=== PATIENT | male | born 1970 | race Caucasian/White ===

== ENCOUNTER → 2016-11-16 | Outpatient (CLI) | payer OTHER ==
--- NOTE | 2016-11-16 18:35 | MR ---
EXAMINATION TYPE: MR knee LT wo con DATE OF EXAM: 11/16/2016 COMPARISON: NONE HISTORY: Pain Left Knee with some swelling, x3 weeks TECHNIQUE: Multiplanar, multisequence images of the knee is performed without IV contrast. FINDINGS: MEDIAL MENISCUS: Anterior and posterior horns are intact without tear. LATERAL MENISCUS: Anterior horn is intact without tear. There is a lobulated signal posterior horn of medial meniscus extends to superior articular surface on sagittal image 24 consistent with full-thic kness meniscal tear, linear extension to inferior articular surface felt present on sagittal image 25 . CRUCIATE LIGAMENTS: The posterior cruciate ligaments is intact and unremarkable. Anterior cruciate li gament is completely torn from proximal attachment with small residual lobulated ligament noted on sa gittal image 16. COLLATERAL LIGAMENTS: The medial collateral ligament and lateral collateral ligament complex are inta ct. Mild increased fluid signal surrounds medial collateral ligament. EXTENSOR MECHANISM: Visualized quadriceps and patellar tendons are intact. EFFUSION: No significant suprapatellar joint effusion. POPLITEAL CYST: No popliteal/collins cyst. TRICOMPARTMENT SPACES: There is mild tricompartment joint space loss. No significant spurring is seen . CARTILAGE: There is focal cartilaginous defect along posterior patellar pole centrally superiorly to mid segments seen best on axial image 18 and sagittal image 20. There is adjacent cystic change in th e posterior patellar pole. Findings are consistent with focal full-thickness chondromalacia patella. Articular cartilage medial and lateral tibial femoral compartments is fairly well-maintained. BONE MARROW SIGNAL: As above. Heterogeneity consistent with red marrow reconversion is also present. OTHER: No additional significant abnormality is appreciated. IMPRESSION: 1. Complete ACL tear. 2. Complex full-thickness tear posterior horn of medial meniscus. 3. Mild MCL sprain. 4. Background mild tricompartment degenerative changes with full-thickness chondromalacia patella not ed along superior posterior patella.
== END | disposition home or self-care (01) ==
LOC: RADMRIMAIN 17:44
PROVIDERS: ATTEND Family Medicine
DX: S83.412A Sprain of medial collateral ligament of left knee, initial encounter (principal); S83.512A Sprain of anterior cruciate ligament of left knee, initial encounter; S83.242A Other tear of medial meniscus, current injury, left knee, initial encounter; M17.11 Unilateral primary osteoarthritis, right knee

== ENCOUNTER 2016-12-25 10:50 | Day surgery (SDC) | payer OTHER ==
[2016-12-18 09:03] VITALS: BMI 25.8
[~2016-12-25 10:50] MED LIST: DEXAMETHASONE SOD PHOSPHATE 10 MG/ML 1 ML VIAL IV ONE; HYDROmorphone 1 MG/ML 1 ML SYRINGE IVP PRN; LACTATED RINGERS 1,000 ML IV SCH; MIDAZOLAM 2 MG/2 ML VIAL IV PRN; ONDANSETRON 4 MG/2 ML VIAL IVP ONE; Pre Op ABX Message 1 EACH MISC MISCELLANE ONE; SCOPOLAMINE 1.5MG/72HR PATCH TRANSDERM ONE
[2016-12-25] MEDS ORDERED: LIDOCAINE 1% 20 ML VIAL (10MG/ML) FOR IV START INTRADERMA ONE (11:34)
[2016-12-25] MEDS ORDERED: HYDROmorphone (PF) 1 MG/ML ONE (13:13)
[2016-12-25] MEDS ORDERED: PROPOFOL 10 MG/ML 20 ML VIAL IV ONE (13:13)
[2016-12-25] MEDS ORDERED: SUCCINYLCHOLINE CHLORIDE 100 MG/5 ML SYR IV ONE (13:13)
[2016-12-25] MEDS ORDERED: fentaNYL (PF) 50 MCG/ML 2 ML AMP ONE (13:13)
[2016-12-25] MEDS ORDERED: KETOROLAC 30 MG/ML 1 ML VIAL ONE (13:13)
[2016-12-25] MEDS ORDERED: MIDAZOLAM 2 MG/2 ML VIAL ONE (13:13)
[2016-12-25] MEDS ORDERED: SODIUM CHLORIDE 0.9% 50 ML with ceFAZolin 2,000 MG IV ONE ×2 (13:17)
[2016-12-25] MEDS ORDERED: ceFAZolin 1,000 MG in SODIUM CHLORIDE 0.9% 1,000 ML IRRIGATION ONE (14:18)
[2016-12-25] MEDS ORDERED: ceFAZolin 1,000 MG in SODIUM CHLORIDE 0.9% 500 ML IRRIGATION ONE (14:20)
[2016-12-25] MEDS ORDERED: LACTATED RINGERS 1,000 ML IV ONE (14:35)
[2016-12-25] MEDS ORDERED: ROPIVACAINE 246.25 MG, EPINEPHrine 0.5 MG, KETOROLAC 30 MG, cloNIDine HCL/PF 80 MCG, WA... MISCELLANE ONE ×5 (15:15)
[2016-12-25 15:53] VITALS: TEMP 97.1
--- NOTE | 2016-12-25 16:12 | P.OP ---
Date of Procedure: 12/25/16 Procedure(s) Performed: ACL reconstruction with allograft anterior tibialis. Graftlink procedure. 9.5 mm femoral and 10.0 mm tibial. partial medial meniscectomy 30%. Stellate bucket handle tear in white-white zone. No significant lateral meniscus tear. No significant arthritis of any compartment. PREOPERATIVE DIAGNOSES: 1. Left knee anterior cruciate ligament tear; 2. Posterior horn medial meniscus tear, stellate 3. Lateral meniscus tear POSTOPERATIVE DIAGNOSES: 1. Left knee anterior cruciate ligament tear; 2. Posterior horn medial meniscus tear, stellate 3. No evidence of lateral meniscus tear PROCEDURES PERFORMED: 1. Left knee arthroscopically-assisted anterior cruciate ligament reconstruction with soft tissue allograft 2. Left knee arthroscopic partial medial meniscectomy, 30% ANESTHESIA: data technician: None COMPLICATIONS: None ESTIMATED BLOOD LOSS: Less than 20 cc TOURNIQUET: 75 minutes DISPOSITION: To post-anesthesia care unit INDICATIONS: Kavon is a 46-year-old male with a history of left knee ACL tear and lateral and medial meniscus tears. We have discussed different approaches to ACL reconstruction and the decision is for soft tissue allograft reconstruction with possible meniscal repair versus debridement. I have explained the details of this surgery thoroughly and also explained the potential risks and complications, including the relative risks of graft failure. Other risks are inclusive of, but not limited to: bleeding, infection, scarring, discomfort, blood vessel and nerve damage, stiffness, weakness, need for further surgery, failure to relieve symptoms, persistence or worsening of problems, , and other risks. The patient and parents are aware of these risks and agree to proceed with surgery. The consent form has been signed. PROCEDURE: After appropriate consent was obtained, the patient was taken to the operating room and placed supine on the operating table. General anesthesia was initiated. The knee was examined under anesthesia. Medial collateral, lateral collateral and posterior cruciate ligaments were all intact. There was positive pivot shift of 2+ and 4mm anterior translation with both Lamar and anterior drawer. Full range of motion was noted without crepitus. No effusion or soft tissue swelling was noted. Prepping and draping of the left knee was performed in the usual sterile fashion using ChloraPrep. Care was taken that all pressure points were adequately padded. Leg booker and pneumotourniquet were used. Time-out was called [facility] to [facility] standards, confirming patient identity, surgical procedure, side, and antibiotic administration. Graft preparation took place on the Arthrex graft preparation station. Measurement and preparation of the graft took place uneventfully. The graft was trimmed down to measure approximately 9-10 mm diameter and 68-72 mm length quadrupled graft. 3 loose type suture ligations were performed using #2 FiberWire to secure the graft. The graft was inserted onto the Arthrex ACL tightrope RT on one side, and the ABS sutures on the other. These devices were then attached to the adjustable sliding units on the prep station. The graft was then set to 20 pounds of tension on the graft prep board and covered with a sterile saline soaked gauze pad. During the preparation of the graft, arthroscopy commenced. The surgical portals were placed directly next to the patellar tendon medially and laterally. Camera and instruments were carefully inserted into the knee and arthroscopy was performed. The patellofemoral joint was normal. Hyaline cartilage was normal. No loose bodies in the medial or lateral gutters, quad tendon normal. No plica. Lateral compartment showed normal hyaline cartilage without defect. Meniscus was normal to visualization and probing. No loose bodies were seen within the lateral compartment. Medial compartment was then examined. Medial hyaline cartilage of the femur and tibia were normal. Medial meniscus showed a degenerative posterior horn meniscus tear which was a bucket-handle tear in the white white zone with an unstable appearance. The displaceable fragment of meniscus was poor tissue quality. This was determined to be unrepairable. Approximately 30 % of the meniscus was resected using a shaver and basket forceps. Meniscal remnant was probed and found to be stable. The notch of the knee was then inspected. The patient had a complete tear of the ACL at the femoral attachment with a small Cyclops lesion. The remnant was debrided away with care to avoid injuring the PCL. The notch in this patient was somewhat narrow, and so it was expanded in the lateral direction with a jenny. Only 3 mm of bone was resected from the lateral portion of the notch, just enough to get the guide in. The soft tissue on the lateral side of the notch was cleared as necessary using a shaver. Next, the femoral socket was created using the Arthrex flip cutter guide. The guide was adjusted through the anterolateral portal after careful measurement of the anterior to posterior condylar distance on the lateral notch. A spot approximately between 40 and 50% of this length was chosen and the guide was moved superiorly only as much as to allow for a 2.5 mm back wall. Incision was created on the lateral side of the thigh over the IT band and the guide was placed against the bone. Guide position was adjusted so that there was 20 of anterior elevation in the coronal plane of the femur and 60 in the sagittal plane. Drilling was then performed using the flip cutter drill pin into the knee at the appropriate location. Once the pin position was noted to be satisfactory, the guide was removed and the drill sleeve was tapped into the bone using a mallet. The flip cutter was then deployed and retro-drilling was performed to create a femoral socket of approximately 25 mm. Debris was suctioned out using a shaver. Passing suture was then inserted into the knee joint and carried out through the anteromedial portal. The tibial tunnel was created by the following steps. The retro-cutter aiming guide for the tunnel was placed into the anteromedial portal and onto the cleared central footprint of the blackfeet ACL. The guide cylinder was placed securely on the tibial cortex. The tibial bone length was measured. The retro- cutter guide pin was then inserted into the tibia to emerge at the mid- posterior aspect of the blackfeet ACL footprint, approximately 5 mm from the PCL and just anterior to the posterior border of the anterior horn of the lateral meniscus. The pin was noted to be in excellent position. The retro-cutter was then deployed and reverse drilling was performed creating a tibial socket approximately 30 mm in length. No fracture was noted. The intraarticular debris was removed using a shaver. Graft passing suture was placed. The femoral portion of the GraftLink construct was then inserted into the knee joint, guided by the passing suture. The Endobutton was carried through the femoral cortex and flipped, engaging the cortex securely. Approximately 10 mm or so of the graft was then placed into the femoral socket, using the sutures of the Endobutton. In similar fashion, the graft passing suture was placed into the loop and brought out through the tibial tunnel. This brought the tibial ABS sutures along with it. Approximately 20 mm of graft was placed within the tibial tunnel at which point the adjustable button for the tibia was placed on the sutures. The femoral portion of the graft was completely deployed at this point and bottomed out nicely. The adjustable button was confirmed to be on the cortex of the tibia without interposed soft tissue and preliminary tensioning was performed at that point in full extension. No graft impingement was noted. The knee was then taken through range of motion cycling 10 times. There was no significant motion of the graft detected and the femoral and tibial fixation was noted to be solid. Further tightening of the sutures was performed in extension from the tibial side and the knee was cycled 10 more times with final tightening of the sutures at that point. Sutures were then tied together over the button. Knee was then taken through range of motion which was noted to be full. No graft impingement was noted at the roof or sides of the notch. Fluid was removed from the knee and testing was performed. Anterior drawer 0 mm and Lamar 0 mm. Negative pivot shift. Tourniquet was deflated. Hemostasis was obtained using cautery and pressure. Graft passing sutures were removed or cut as necessary. Thorough irrigation using antibiotic solution was performed, and portals were closed with 4-0 Monocryl suture. Posterior medial incision for hamstring harvest was closed with 3-0 Vicryl suture in the subcutaneous tissue, followed by 4-0 Monocryl suture in running subcuticular fashion for the skin, followed by Dermabond. Tibial incision was closed with 4-0 Monocryl for the skin. Steri strips were applied. Sterile dressing and light compressive dressing was applied using Webril and EDNA wrap. Knee immobilizer was applied. Patient tolerated the procedure well and taken to recovery room in stable condition. Sponge and needle counts were correct.
[2016-12-25 17:02] VITALS: RESP 18
[2016-12-25] MEDS ORDERED: HYDROcodone/APAP 7.5-325MG 1 EACH TAB PO ONE (17:15)
[2016-12-25 18:42] VITALS: BP 106/67; PULSE 76
--- NOTE | 2016-12-30 09:39 | CDI ---
Documentation Clarification OP Dear Dr. Hammond, Please provide clarification regarding the laterality of the procedure performed. Both History and Physical reports state that the injury was to the left knee. The Procedure Note is stating procedure performed on the right knee. PLEASE RESPOND TO THIS QUERY BY DICTATING AN ADDENDUM TO EITHER YOUR PROCEDURE NOTE OR A NEW HISTORY AND PHYSICAL. Thank you for your assistance, BREEZY Keenan If you have any questions, please contact Personalization Specialist, Roro Kwon at [facility]
--- NOTE | 2017-01-06 06:09 | CDI ---
Dear Dr. Hammond, Please provide clarification regarding the laterality of the procedure performed. Both History and Physical reports and surgical profile state that the injury was to the left knee. The Procedure Note is stating procedure performed on the right knee. PLEASE RESPOND TO THIS QUERY BY DICTATING AN ADDENDUM TO EITHER YOUR PROCEDURE NOTE OR A NEW HISTORY AND PHYSICAL. Thank you for your assistance, BREEZY Keenan If you have any questions, please contact Kinder Teacher, Roro Kwon at [facility]
== END 2016-12-25 19:00 | disposition home or self-care (01) ==
LOC: OR 10:50
PROVIDERS: ATTEND Orthopaedic Surgery
DX: S83.512A Sprain of anterior cruciate ligament of left knee, initial encounter (principal); S83.242A Other tear of medial meniscus, current injury, left knee, initial encounter; Y93.64 Activity, baseball
CPT/HCPCS: 29888; 29881; C1713; C1762; J2250; J1100; J2405; J0690 ×2; J3010; J1885; J1170; J0330; J2704

== ENCOUNTER → 2018-06-08 | Outpatient (CLI) | payer BC ==
--- NOTE | 2018-06-08 10:26 | MR ---
EXAMINATION TYPE: MR knee RT wo con DATE OF EXAM: 06/08/2018 COMPARISON: None HISTORY: Right knee pain and internal derangement TECHNIQUE: Multiplanar, multisequence imaging of the right knee is performed without IV contrast. FINDINGS: MEDIAL MENISCUS: There is a longitudinal tear of the posterior horn of the medial meniscus that is co ntiguous with the inferior articular surface with a radial tear of the free edge of the body and post erior horn of the medial meniscus. Anterior horn is intact and unremarkable in signal. LATERAL MENISCUS: There is slight increased signal within the meniscus indicative of mild meniscal my xoid degeneration without discrete tear. CRUCIATE LIGAMENTS: There is a partial thickness tear of the anterior insertional fibers of the anter ior cruciate ligament. Posterior cruciate ligament maintains normal caliber however there is increase d abnormal signal within the mid fibers indicative of low-grade sprain. COLLATERAL LIGAMENTS: There is high signal superficial and deep to the medial collateral ligament. No discontinuity of the medial collateral ligament or lateral collateral ligament is seen. EXTENSOR MECHANISM: Visualized quadriceps and patellar tendons are intact however there is increased signal in the insertional fibers of the quadriceps tendon. EFFUSION: There is a small suprapatellar joint effusion present. POPLITEAL CYST: No popliteal/collins cyst. TRICOMPARTMENT SPACES: Small tricompartmental osteophytes and medial compartment mild joint space gonzalo rowing is noted. CARTILAGE: There is a near full-thickness cartilaginous defect of the lateral tibial plateau measurin g 8 mm with underlying bone marrow edema measuring 1.2 cm. Concerning the lateral femoral cartilage t here is slight signal heterogeneity without focal defect. The medial femoral cartilage demonstrates a partial thickness cartilaginous defect of the anterior ca rtilage measuring 3 mm and overall signal heterogeneity. Chondral loss is seen as a partial thickness cartilaginous defect of the most medial aspect of the tibial plateau deep to the medial meniscus tea r measuring 7 mm. There is full-thickness cartilaginous loss of the patellar apex and medial facet near the patellar ap ex with underlying bone marrow edema and subchondral cystic formation. There are multifocal fissures of the patellar cartilage and overall signal heterogeneity. Reticular cartilage appears intact. BONE MARROW SIGNAL: Patellar and lateral femoral condylar areas of bone marrow edema as described abo ve. IMPRESSION: 1. Longitudinal tear of the posterior horn of the medial meniscus with additional small radial tears of the posterior horn of the medial meniscus and meniscal body at the free edges. 2. Near full-thickness cartilaginous loss of the lateral tibial plateau with underlying 1.2 cm focal area of bone marrow edema. Full-thickness cartilaginous loss of the patellar apex and medial patellar facet near the patellar apex with underlying subchondral cystic formation and bone marrow edema. 3. Partial thickness tear of the anterior cruciate ligament insertional fibers and low-grade sprain o f the posterior cruciate ligament. 4. Low-grade sprain of the medial collateral ligament with overlying fluid suggestive of MCL bursitis . 5. Lateral meniscal myxoid degeneration, mild. Other findings as described above.
== END ==
LOC: RADMRIMAIN 07:01
PROVIDERS: ATTEND Family Medicine
DX: S83.241A Other tear of medial meniscus, current injury, right knee, initial encounter (principal); S83.521A Sprain of posterior cruciate ligament of right knee, initial encounter; M85.661 Other cyst of bone, right lower leg; M25.761 Osteophyte, right knee

== ENCOUNTER 2022-08-22 16:21 | Emergency (ER) | payer OTHER, BC ==
[2022-08-22 17:00] VITALS: BP 120/74; PULSE 65; RESP 18; TEMP 98
== END 2022-08-22 17:08 ==
LOC: EC 16:21
DX: Z02.83 Encounter for blood-alcohol and blood-drug test (principal)
CPT/HCPCS: 99499

== ENCOUNTER → 2022-09-24 | Outpatient (CLI) | payer BC ==
--- NOTE | 2022-09-24 10:41 | US ---
EXAMINATION TYPE: US venous doppler duplex LE RT DATE OF EXAM: 09/24/2022 9:48 AM COMPARISON: NONE CLINICAL INDICATION: Male, 52 years old with history of I80.9 PHLEBITIS AND THROMBOPHLEBITIS OF UNSPE CIFIE; right ACL plus multiple other tears, right calf pain, no h/o dvt SIDE PERFORMED: Right TECHNIQUE: The lower extremity deep venous system is examined utilizing real time linear array sonog juan pablo with graded compression, doppler sonography and color-flow sonography. VESSELS IMAGED: Common Femoral Vein Deep Femoral Vein Greater Saphenous Vein * Femoral Vein Popliteal Vein Small Saphenous Vein * Proximal Calf Veins (* superficial vessels) Right Leg: Negative for DVT office called with negative findings IMPRESSION: Grayscale, color doppler, spectral doppler imaging performed of the deep veins of the lo wer extremities. There is normal flow, compressibility, vascular waveforms.
== END | disposition home or self-care (01) ==
LOC: RADUSWWP 09:32
PROVIDERS: ATTEND Orthopaedic Surgery
DX: I80.9 Phlebitis and thrombophlebitis of unspecified site (principal)